=== PATIENT | male | born 1940 | race Caucasian/White ===

== ENCOUNTER 2018-04-17 16:44 | Emergency (ER) | payer OTHER ==
[~2018-04-17] VITALS: Ht 182.9 cm; Wt 99.8 kg
[2018-04-17 16:47] VITALS: BP 109/70
--- NOTE | 2018-04-17 16:47 | NUR ---
PT BIBA TO ER BED 04
[2018-04-17] MEDS ORDERED: diphenhydrAMINE 50 MG/ML VIAL IVP ONE (16:50)
[2018-04-17] MEDS ORDERED: NACL 0.9% 1,000 ML IV ONE (16:50)
[2018-04-17] MEDS ORDERED: DEXAMETHASONE 10 MG/ML VIAL IVP ONE (16:50)
--- NOTE | 2018-04-17 17:00 | NUR ---
PATIENT BIBA FOR BEE STING AND ALLERGIC REACTION. PATIENT STATES HE WAS DOING YARD WORK AND WAS STUNG ON THE TOP OF HIS HEAD. PATIENT STARTED FEELING DIZZY AND FAINT. HE REPORTS HE CRAWLED INTO HIS KITCHEN AND FELL. CALLED AMBULANCE. PATIENT DECLINES PAIN, DENIES HX, DENIES RX. PATIENT SKIN APPEARS RED AND FLUSHED OVER HIS TRUNK, LEGS AND ARMS. PATIENT HAS A WELT ON TOP OF HIS HEAD WHERE HE GOT STUNG. LUNGS CLEAR BL; HR EVEN AND REGULAR; PT DENIES ANY FEVER, CP, SOB, OR COUGH AT THIS TIME; PATIENT STATES PAIN OF 0/10 AT THIS TIME; VSS; PATIENT POSITIONED FOR COMFORT; HOB ELEVATED; BEDRAILS UP X2; BED DOWN. ER MD MADE AWARE OF PT STATUS.
[2018-04-17 17:16] LABS: HEMATOCRIT 48.4 % (36-52); HEMOGLOBIN 15.8 g/dL (12.0-18.0); MEAN CORPUSCULAR HEMOGLOBIN 31 pg (27-31); MEAN CORPUSCULAR HGB CONC 33 g/dL (33-37); MEAN CORPUSCULAR VOLUME 93.4 fL (80-94); PLATELET COUNT (AUTO) 251 K/uL (140-450); RED BLOOD CELL COUNT(AUTO) 5.19 MIL/uL (4.20-6.10); RED CELL DISTRIBUTION WIDTH 13.1 % (11.6-13.7)
[2018-04-17 17:25] LABS: ANION GAP 16.2 (8-16); CARBON DIOXIDE 22.1 mmol/L (21-32); CHLORIDE 100 mmol/L (98-107); CREATININE 1.1 mg/dL (0.7-1.3); GLUCOSE 139 mg/dL (74-106); POTASSIUM 3.3 mmol/L (3.5-5.1); SODIUM SERUM 135 mmol/L (136-145); UREA NITROGEN, BLOOD 18 mg/dL (7-18)
[2018-04-17 17:31] LABS: ALBUMIN 3.2 g/dL (3.4-5.0); ASPARTATE AMINOTRANSFERASE 14 U/L (15-37); TOTAL BILIRUBIN 0.3 mg/dL (0.0-1.0)
[2018-04-17 17:34] LABS: LYMPHOCYTES % (MANUAL) 15 % (20-46); MONOCYTES % (MANUAL) 5 % (5-12)
--- NOTE | 2018-04-17 17:48 | NUR ---
PATIENT TAKEN TO CT
--- NOTE | 2018-04-17 17:56 | NUR ---
PATIENT BACK FROM CT
[2018-04-17 17:58] LABS: APPEARANCE,URINE CLEAR (CLEAR); BILIRUBIN,URINE NEGATIVE (NEGATIVE); BLOOD, URINE NEGATIVE (NEGATIVE); COLOR,URINE YELLOW (YELLOW); LEUKOCYTE ESTERASE ,URINE NEGATIVE (NEGATIVE); NITRITE, URINE NEGATIVE (NEGATIVE); UGLUCOSE NEGATIVE (NEGATIVE)
[2018-04-17 18:27] VITALS: BP 127/82
--- NOTE | 2018-04-17 18:27 | NUR ---
Patient discharged with v/s stable. Written and verbal after care instructions given and explained. Patient alert, oriented and verbalized understanding of instructions. Ambulatory with steady gait. All questions addressed prior to discharge. ID band removed. Patient advised to follow up with PMD. Rx of PREDNISONE AND BENADRYL given. Patient educated on indication of medication including possible reaction and side effects. Opportunity to ask questions provided and answered.
== END 2018-04-17 18:27 | disposition home or self-care (01) ==
LOC: MED 16:44
DX: T63.441A Toxic effect of venom of bees, accidental (unintentional), initial encounter (principal); S09.90XA Unspecified injury of head, initial encounter; L50.9 Urticaria, unspecified; Z91.030 Bee allergy status; W18.39XA Other fall on same level, initial encounter; Y93.89 Activity, other specified; Y99.8 Other external cause status; Y92.096 Garden or yard of other non-institutional residence as the place of occurrence of the external cause
CPT/HCPCS: 36415; 70450; 71045; 80053; 81003; 82948; 85025; 96374; 96375; 99285; J1100; J1200